=== PATIENT | male | born 1955 | race Caucasian/White ===

== ENCOUNTER → 2016-04-17 | Outpatient (CLI) | payer MEDICARE ==
[~2016-04-17] MED LIST: ASPIRIN81 M2 PO; FLEXERIL10 MG PO; GLUCOPHAGE500 MG PO; HUMALOG100 U/ML; LANTUS100 U/ML; LASIX20 MG PO; LEVOXYL175 MCG PO; LOSARTAN POTAS100 MG PO; PRAVACHOL20 MG PO; TIMOPTIC5 ML OP; TRIAMTERENE-HC1 EAC1 PO; TYLENOL #3 PO
--- NOTE | ~2016-04-17 | CR63 ---
[facility]. [facility] A Service of [facility] & [facility] RADIOLOGY TEXT RESULTS PATIENT: ALBAN NATARAJAN SR LOCATION: [facility] : 51 UNIT #: [id number] AGE: [address]: Mateo Willard MD SEX: M ORDER DR: [id number] [place] [id number] O MR#: [id number] Acc #: [id number] NAME: ALBAN NATARAJAN : 1955 SEX: M STUDY DATE/TIME: 04/17/2016 10:09 UNIT: [facility] ROOM: STUDY DESCRIPTION: CR Chest 2 View Attending Physician: Mateo Willard M.D. Referring Physician: Mateo Willard M.D. Ordering Physician: Mateo Willard M.D. Primary Care Physician: Mateo Willard M.D. MEDICAL IMAGING REPORT This report is preliminary unless electronic signature is present. Chest PA and Lateral 04/17/2016 HISTORY Shortness of breath and cough with bilateral lower extremity edema for one month. Benign essential hypertension. FINDINGS The heart is normal in size. There is elevation of the right hemidiaphragm with atelectasis at the right lung base. The lungs are otherwise clear. There are no pleural effusions. IMPRESSION No active pulmonary disease. Dictated by... Ty Constantino M.D. THIS IS AN ELECTRONICALLY VERIFIED REPORT Ty Constantino M.D. at 04/19/2016 2:22 PM KRT/psc TD: 04/18/2016 03:55 JOB #: [id number] MEDICAL IMAGING REPORT
== END | disposition home or self-care (01) ==
LOC: SRAD 09:28
DX: R06.02 Shortness of breath (principal); R60.0 Localized edema
CPT/HCPCS: 71020